=== PATIENT | male | born 1930 | race Caucasian/White ===

== ENCOUNTER 2019-01-21 16:48 | Emergency (ER) | payer MEDICARE ==
[2019-01-21] MEDS ORDERED: Sodium Chloride 0.9% 10 ML Syringe FLUSH PRN (17:39)
[2019-01-21] MEDS ORDERED: Dextrose 5%-Lactated Ringers 1,000 ML IV SCH (17:45)
--- NOTE | 2019-01-21 17:45 | EDM.PDOC ---
ED HPI GENERAL MEDICAL PROBLEM - General Chief Complaint: Fever Stated Complaint: FEVER AND IS A CHEMO PT Time Seen by Provider: 01/21/19 17:30 Source of Information: Reports: Patient, Family History Limitations: Reports: No Limitations - History of Present Illness INITIAL COMMENTS - FREE TEXT/NARRATIVE: Frandy comes into [facility] ED with a fever to 100.7 deg F. He was diagnosed with Stage III nonHodgkins lymphoma last month, and completed first cycle of chemotherapy at [facility] last week. Diarrheal sxs developed January 18, averaging about 4 loose stools per day, without BRB or mucous detected. Appetite has been poor today. There is no headache, cough, sore throat, swollen lymph nodes, nausea or vomiting, no voiding sxs. He took some Tylenol about 2 hours ago. - Related Data Allergies Allergy/AdvReac Type Severity Reaction Status Date / Time No Known Allergies Allergy Verified 11/18/18 08:59 Home Meds: Home Meds . [Unable to Verify Home Med List] 12/16/15 [History] Past Medical History HEENT History: Reports: Impaired Vision Cardiovascular History: Reports: High Cholesterol, Hypertension ED ROS GENERAL - Review of Systems Review Of Systems: See Below Constitutional: Reports: Fever, Malaise, Decreased Appetite HEENT: Reports: No Symptoms Respiratory: Reports: No Symptoms Cardiovascular: Reports: No Symptoms Endocrine: Reports: No Symptoms GI/Abdominal: Reports: Diarrhea, Decreased Appetite : Reports: No Symptoms Musculoskeletal: Reports: No Symptoms Skin: Reports: No Symptoms Neurological: Reports: No Symptoms Hematologic/Lymphatic: Reports: No Symptoms Immunologic: Reports: No Symptoms ED EXAM, GENERAL - Physical Exam Exam: See Below Exam Limited By: No Limitations General Appearance: Alert, WD/WN, No Apparent Distress Eye Exam: Bilateral Eye: EOMI, Normal Inspection, PERRL Ears: Normal External Exam, Normal TMs Nose: Normal Inspection Throat/Mouth: Normal Inspection, Normal Oropharynx, Normal Voice Head: Normocephalic Neck: Normal Inspection, Supple, Non-Tender Respiratory/Chest: No Respiratory Distress, No Accessory Muscle Use, Chest Non- Tender, Crackles (bases) Cardiovascular: Regular Rate, Rhythm, No Murmur GI/Abdominal: Normal Bowel Sounds, Soft, Non-Tender, No Organomegaly, No Distention, No Mass (Male) Exam: Deferred Rectal (Males) Exam: Deferred Back Exam: Normal Inspection Extremities: Normal Inspection Neurological: Alert, Oriented, CN II-XII Intact, No Motor/Sensory Deficits Psychiatric: Normal Affect, Normal Mood Skin Exam: Warm, Dry, Intact, Normal Color, No Rash Lymphatic: No Adenopathy Course - Vital Signs Text/Narrative:: Following assessment, screening labs and a chest x ray were obtained and baseline. An IV was inserted into the RUE and he received 1L of NS. He was afebrile at time of discharge. - Orders/Labs/Meds Orders: Active Orders 24 hr Category Date Time Status Chest 1V Frontal [CR] Stat Exams 01/21/19 17:39 Taken CULTURE BLOOD [BC] Stat Lab 01/21/19 17:50 Received Dextrose 5%-Lactated Ringers 1,000 ml Med 01/21/19 17:45 Active IV ASDIRECTED Dextrose 5%-Lactated Ringers [Dextrose 5%-LR] 500 ml Med 01/21/19 19:30 Active IV ASDIRECTED Sodium Chloride 0.9% [Saline Flush] Med 01/21/19 17:39 Active 10 ml FLUSH ASDIRECTED PRN Peripheral IV Insertion Adult [OM.PC] Routine Oth 01/21/19 17:39 Ordered Medication Orders Dextrose/Lactated Ringer's (Dextrose 5%-Lactated Ringers) 1,000 mls @ 500 mls/ hr IV ASDIRECTED VALERIE Last Admin: 01/21/19 17:47 Dose: 500 mls/hr Dextrose/Lactated Ringer's (Dextrose 5%-Lr) 500 mls @ 500 mls/hr IV ASDIRECTED VALERIE Sodium Chloride (Saline Flush) 10 ml FLUSH ASDIRECTED PRN PRN Reason: Keep Vein Open Last Admin: 01/21/19 17:42 Dose: 10 ml Labs: Laboratory Tests 01/21/19 01/21/19 01/21/19 Range/Units 17:50 17:50 17:50 WBC 6.0 (4.5-12.0) X10-3/uL RBC 3.03 L (4.30-5.75) x10(6)uL Hgb 9.8 L (13.5-17.8) g/dL Hct 28.6 L (30.0-51.3) % MCV 94.4 (80-96) fL MCH 32.3 (27.7-33.6) pg MCHC 34.2 (32.2-35.4) g/dL RDW 14.0 (11.5-15.5) % Plt Count 102 L (125-369) X10(3)uL MPV 10.0 (7.4-10.4) fL Add Manual Diff Yes Neutrophils % (Manual) 82 (46-82) % Band Neutrophils % 8 H (0-6) % Lymphocytes % (Manual) 8 L (13-37) % Monocytes % (Manual) 2 L (4-12) % Sodium 134 L (135-145) mmol/L Potassium 3.7 (3.5-5.3) mmol/L Chloride 100 (100-110) mmol/L Carbon Dioxide 28 (21-32) mmol/L BUN 27 H (7-18) mg/dL Creatinine 1.0 (0.70-1.30) mg/dL Est Cr Clr Drug Dosing TNP Estimated GFR (MDRD) > 60 (>60) BUN/Creatinine Ratio 27.0 H (9-20) Glucose 122 H (80-116) mg/dL Uric Acid 5.1 (2.6-6.0) mg/dL Calcium 7.5 L (8.6-10.2) mg/dL Total Bilirubin 0.6 (0.1-1.3) mg/dL AST 22 (5-25) IU/L ALT 28 (12-36) U/L Alkaline Phosphatase 76 (56-112) IU/L Total Protein 5.8 L (6.0-8.0) g/dL Albumin 2.7 L (3.2-4.6) g/dL Globulin 3.1 g/dL Albumin/Globulin Ratio 0.9 Urine Color (YELLOW) Urine Appearance (CLEAR) Urine pH (5.0-6.5) Ur Specific [place] (1.010-1.025) Urine Protein (NEGATIVE) mg/dL Urine Glucose (UA) (NORMAL) mg/dL Urine Ketones (NEGATIVE) mg/dL Urine Occult Blood (NEGATIVE) Urine Nitrite (NEGATIVE) Urine Bilirubin (NEGATIVE) Urine Urobilinogen (NEGATIVE) mg/dL Ur Leukocyte Esterase (NEGATIVE) Urine RBC (0-5) Urine WBC (0-5) Ur Squamous Epith Cells (NS,R,O) Urine Bacteria (NS) 01/21/19 Range/Units 19:57 WBC (4.5-12.0) X10-3/uL RBC (4.30-5.75) x10(6)uL Hgb (13.5-17.8) g/dL Hct (30.0-51.3) % MCV (80-96) fL MCH (27.7-33.6) pg MCHC (32.2-35.4) g/dL RDW (11.5-15.5) % Plt Count (125-369) X10(3)uL MPV (7.4-10.4) fL Add Manual Diff Neutrophils % (Manual) (46-82) % Band Neutrophils % (0-6) % Lymphocytes % (Manual) (13-37) % Monocytes % (Manual) (4-12) % Sodium (135-145) mmol/L Potassium (3.5-5.3) mmol/L Chloride (100-110) mmol/L Carbon Dioxide (21-32) mmol/L BUN (7-18) mg/dL Creatinine (0.70-1.30) mg/dL Est Cr Clr Drug Dosing Estimated GFR (MDRD) (>60) BUN/Creatinine Ratio (9-20) Glucose (80-116) mg/dL Uric Acid (2.6-6.0) mg/dL Calcium (8.6-10.2) mg/dL Total Bilirubin (0.1-1.3) mg/dL AST (5-25) IU/L ALT (12-36) U/L Alkaline Phosphatase (56-112) IU/L Total Protein (6.0-8.0) g/dL Albumin (3.2-4.6) g/dL Globulin g/dL Albumin/Globulin Ratio Urine Color Yellow (YELLOW) Urine Appearance Clear (CLEAR) Urine pH 5.0 (5.0-6.5) Ur Specific [place] 1.010 (1.010-1.025) Urine Protein Negative (NEGATIVE) mg/dL Urine Glucose (UA) Normal (NORMAL) mg/dL Urine Ketones Negative (NEGATIVE) mg/dL Urine Occult Blood Negative (NEGATIVE) Urine Nitrite Negative (NEGATIVE) Urine Bilirubin Negative (NEGATIVE) Urine Urobilinogen Normal (NEGATIVE) mg/dL Ur Leukocyte Esterase Negative (NEGATIVE) Urine RBC Not seen (0-5) Urine WBC 0-5 (0-5) Ur Squamous Epith Cells Few H (NS,R,O) Urine Bacteria Few H (NS) Meds: Medications Generic Name Dose Route Start Last Admin Trade Name Cindy PRN Reason Stop Dose Admin Dextrose/Lactated Ringer's 1,000 mls @ 500 mls/hr 01/21/19 17:45 01/21/19 17: 47 Dextrose 5%-Lactated Ringers IV 500 mls/hr ASDIRECTED VALERIE Administration Dextrose/Lactated Ringer's 500 mls @ 500 mls/hr 01/21/19 19:30 Dextrose 5%-Lr IV ASDIRECTED VALERIE Sodium Chloride 10 ml 01/21/19 17:39 01/21/19 17:42 Saline Flush FLUSH 10 ml ASDIRECTED PRN Administration Keep Vein Open Departure - Departure Time of Disposition: 20:15 Disposition: Home, Self-Care 01 Condition: Good Clinical Impression: Fever, unspecified Non-Hodgkins lymphoma Qualifiers: Non-Hodgkin lymphoma type: unspecified type Lymphoma site: neck Qualified Code( s): C85.91 - Non-Hodgkin lymphoma, unspecified, lymph nodes of head, face, and neck - Discharge Information *PRESCRIPTION DRUG MONITORING PROGRAM REVIEWED*: Not Applicable *COPY OF PRESCRIPTION DRUG MONITORING REPORT IN PATIENT [place]: Not Applicable Referrals: PCP,Not In Area [Ordering Only Provider] - Forms: ED Department Discharge - Problem List & Annotations (1) Fever, unspecified SNOMED Code(s): 720083935 Code(s): R50.9 - FEVER, UNSPECIFIED Status: Acute Current Visit: Yes Annotation/Comment:: Monitor temps at home, hydration, rest. (2) Non-Hodgkins lymphoma SNOMED Code(s): 480197985 Code(s): C85.90 - NON-HODGKIN LYMPHOMA, UNSPECIFIED, UNSPECIFIED SITE Status: Acute Current Visit: Yes Annotation/Comment:: Contact Oncology Nurse in am for update. Qualifiers: Non-Hodgkin lymphoma type: unspecified type Lymphoma site: neck Qualified Code(s): C85.91 - Non-Hodgkin lymphoma, unspecified, lymph nodes of head, face, and neck - Problem List Review Problem List Initiated/Reviewed/Updated: Yes - My Orders Last 24 Hours: My Active Orders 01/21/19 17:39 Chest 1V Frontal [CR] Stat Sodium Chloride 0.9% [Saline Flush] 10 ml FLUSH ASDIRECTED PRN Peripheral IV Insertion Adult [OM.PC] Routine 01/21/19 17:45 Dextrose 5%-Lactated Ringers 1,000 ml IV ASDIRECTED 01/21/19 17:50 CULTURE BLOOD [BC] Stat 01/21/19 19:30 Dextrose 5%-Lactated Ringers [Dextrose 5%-LR] 500 ml IV ASDIRECTED - Assessment/Plan Last 24 Hours: My Active Orders 01/21/19 17:39 Chest 1V Frontal [CR] Stat Sodium Chloride 0.9% [Saline Flush] 10 ml FLUSH ASDIRECTED PRN Peripheral IV Insertion Adult [OM.PC] Routine 01/21/19 17:45 Dextrose 5%-Lactated Ringers 1,000 ml IV ASDIRECTED 01/21/19 17:50 CULTURE BLOOD [BC] Stat 01/21/19 19:30 Dextrose 5%-Lactated Ringers [Dextrose 5%-LR] 500 ml IV ASDIRECTED Plan: Follow up with Oncology.
--- NOTE | 2019-01-22 10:21 | CR ---
INDICATION: Fever post-chemotherapy--first round of chemo was last week for lymphoma. CHEST ONE VIEW: Portable AP upright view of the chest was obtained 01/21/19 and compared with 08/10/08. There appears to be some very minimal infiltrate in the mid lung field laterally on the right with minimal pleural thickening. This could represent a minimal area of pneumonia and pleuritis. It could also represent interval fibrosis compared with 2008. Heavy markings are also noted at the lung bases especially on the left present previously and likely fibrotic in nature, but making it difficult to exclude minimal patchy bronchopneumonia. However, no consolidating pneumonia with definite effusion was seen. The heart appeared prominent in size or slightly enlarged. Post median sternotomy change is noted. The aorta is moderately tortuous with calcification in the arch area. IMPRESSION: 1. No definite acute process, but cannot exclude minimal patchy pneumonia in the right upper lobe with pleuritis in that area to a minimal extent as well as at the lung bases especially on the left due to heavy markings likely due to fibrosis. 2. ASHD with post CBAG surgery changes. MTDD
[2019-01-22 18:42] VITALS: BP 128/69; PULSE 88
== END 2019-01-21 20:20 | disposition home or self-care (01) ==
LOC: FB.ED 16:48
DX: C85.91 Non-Hodgkin lymphoma, unspecified, lymph nodes of head, face, and neck (principal); I10 Essential (primary) hypertension
CPT/HCPCS: 36415; 71045; 80053; 81001; 84550; 85025; 87040; 96360; 96361; 99284; J7042

== ENCOUNTER 2019-01-23 07:30 | Emergency (ER) | payer MEDICARE ==
--- NOTE | 2019-01-23 07:57 | EDM.PDOC ---
ED HPI GENERAL MEDICAL PROBLEM - General Chief Complaint: Fever Stated Complaint: FEVER Time Seen by Provider: 01/23/19 07:30 Source of Information: Reports: Patient, Family History Limitations: Reports: No Limitations - History of Present Illness INITIAL COMMENTS - FREE TEXT/NARRATIVE: 88 y.a.w.m with none Hodgkin Lymphoma Typ, S/P Chemo Tx, came to the ED due to weakness and fever of 102 at home. Pt denied pain, no chills, no cough, no dysuria, no trauma. No other acute med issues. BP 104/60 RR 18 Pulse ox 95% on RA, Pulse 100 Temp 37.3 Onset Date: 01/23/19 Onset Time: 06:00 Duration: Minutes: Location: Reports: Generalized Quality: Reports: Other (feels weak) Severity: Mild Improves with: Reports: Rest Worsens with: Reports: Movement Context: Reports: Other (H/O Lymphoma) Associated Symptoms: Reports: Weakness - Related Data Allergies Allergy/AdvReac Type Severity Reaction Status Date / Time No Known Allergies Allergy Verified 11/18/18 08:59 Home Meds: Home Meds . [Unable to Verify Home Med List] 12/16/15 [History] Past Medical History HEENT History: Reports: Impaired Vision Cardiovascular History: Reports: High Cholesterol, Hypertension Oncologic (Cancer) History: Reports: Lymphoma Social & Family History - Family History Family Medical History: Noncontributory - Tobacco Use Smoking Status *Q: Former Smoker Used Tobacco, but Quit: Yes Month/Year Tobacco Last Used: 1998 Second Hand Smoke Exposure: No - Caffeine Use Caffeine Use: Reports: Coffee - Recreational Drug Use Recreational Drug Use: No ED ROS GENERAL - Review of Systems Review Of Systems: See Below Constitutional: Reports: No Symptoms, Weakness HEENT: Reports: No Symptoms Respiratory: Reports: No Symptoms Cardiovascular: Reports: No Symptoms Endocrine: Reports: No Symptoms GI/Abdominal: Reports: No Symptoms : Reports: No Symptoms Musculoskeletal: Reports: No Symptoms Skin: Reports: No Symptoms Neurological: Reports: Weakness Psychiatric: Reports: No Symptoms Hematologic/Lymphatic: Reports: No Symptoms Immunologic: Reports: No Symptoms ED EXAM, SEPSIS - Physical Exam Exam: See Below Exam Limited By: No Limitations General Appearance: Alert, WD/WN, Mild Distress Eye Exam: Bilateral Eye: Normal Inspection Ears: Normal External Exam, Normal Canal Nose: Normal Inspection, Normal Mucosa Throat/Mouth: Normal Inspection, Normal Lips, Normal Voice, No Airway Compromise Head: Atraumatic, Normocephalic Neck: Normal Inspection, Supple, Non-Tender, Full Range of Motion Respiratory/Chest: No Respiratory Distress, Lungs Clear, Normal Breath Sounds, No Accessory Muscle Use, Chest Non-Tender Cardiovascular: Normal Peripheral Pulses, Regular Rate, Rhythm Peripheral Pulses: 1+: Brachial (L) GI/Abdominal Exam: Normal Bowel Sounds, Soft, Non-Tender, No Organomegaly, No Mass, Pelvis Stable (Male) Exam: Deferred Rectal (Males) Exam: Deferred Back: Normal Inspection, Full Range of Motion Extremities: Normal Inspection, Normal Range of Motion, Non-Tender, No Pedal Edema, Normal Capillary Refill Neurological: Alert, Oriented, CN II-XII Intact, Normal Cognition, Normal Gait Psychiatric: Normal Affect, Normal Mood Skin: Warm, Dry, Intact, Normal Color, No Rash Lymphatic: Left: Cervical Adenopathy (has lymphoma) Course - Vital Signs Text/Narrative:: 88 y.a.w.m with none Hodgkin Lymphoma Typ, S/P Chemo Tx, came to the ED due to weakness and fever of 102 at home. Pt denied pain, no chills, no cough, no dysuria, no trauma. No other acute med issues. BP 104/60 RR 18 Pulse ox 95% on RA, Pulse 100 Temp 37.3 PE: Pale weak appearing 88 y.o.w.m Imaging: CXR: pending Labs: WBC 1.2 HGB 9.1 HCT 26.6 PlS 67K Na 134 K 3.7 BUN 23 Cr 1.3 GFR 52 Ca 7.2 Impression: Non Hodgkin Disease Typ B, Neutropenia. Low Pls, Low Ca Tx: NS Zosyn 8.30 am Consultation: Dr. Mathews, Hospitalist: transfer 8.42 am Consultation: , Oncologist, [facility]: Accepted the pt for transfer and admission Reexam: Improved Plan: Transfere to [place] Last Recorded V/S: Last Vital Signs Temp 37.4 C 01/23/19 09:18 Pulse 97 01/23/19 09:18 Resp 15 01/23/19 09:18 BP 98/50 L 01/23/19 09:18 Pulse Ox 95 01/23/19 09:18 - Orders/Labs/Meds Orders: Active Orders 24 hr Category Date Time Status CXR [Chest 1V Frontal] [CR] Stat Exams 01/23/19 07:55 Taken CULTURE BLOOD [BC] Urgent Lab 01/23/19 08:06 Received CULTURE BLOOD [BC] Urgent Lab 01/23/19 08:11 Received Sodium Chloride 0.9% [Normal Saline] 1,000 ml Med 01/23/19 08:26 Active IV ASDIRECTED Blood Culture x2 Reflex Set [OM.PC] Urgent Oth 01/23/19 07:55 Ordered Medication Orders Sodium Chloride (Normal Saline) 1,000 mls @ 125 mls/hr IV ASDIRECTED STA Stop: 01/23/19 16:25 Last Admin: 01/23/19 08:50 Dose: 125 mls/hr Labs: Laboratory Tests 01/23/19 01/23/19 01/23/19 Range/Units 08:06 08:06 08:06 WBC 1.2 L* (4.5-12.0) X10-3/uL RBC 2.83 L (4.30-5.75) x10(6)uL Hgb 9.1 L (13.5-17.8) g/dL Hct 26.6 L (30.0-51.3) % MCV 93.9 (80-96) fL MCH 32.1 (27.7-33.6) pg MCHC 34.2 (32.2-35.4) g/dL RDW 14.0 (11.5-15.5) % Plt Count 67 L (125-369) X10(3)uL MPV 10.2 (7.4-10.4) fL Add Manual Diff Yes Neutrophils % (Manual) 60 (46-82) % Lymphocytes % (Manual) 20 (13-37) % Monocytes % (Manual) 20 H (4-12) % PT 9.8 (8.7-11.1) INR 1.01 (0.89-1.13) Sodium 134 L (135-145) mmol/L Potassium 3.7 (3.5-5.3) mmol/L Chloride 98 L (100-110) mmol/L Carbon Dioxide 25 (21-32) mmol/L BUN 23 H (7-18) mg/dL Creatinine 1.3 (0.70-1.30) mg/dL Est Cr Clr Drug Dosing 36.72 mL/min Estimated GFR (MDRD) 52 L (>60) BUN/Creatinine Ratio 17.7 (9-20) Glucose 115 (80-116) mg/dL Lactic Acid (0.4-2.2) mmol/L Calcium 7.2 L (8.6-10.2) mg/dL Urine Color (YELLOW) Urine Appearance (CLEAR) Urine pH (5.0-6.5) Ur Specific [place] (1.010-1.025) Urine Protein (NEGATIVE) mg/dL Urine Glucose (UA) (NORMAL) mg/dL Urine Ketones (NEGATIVE) mg/dL Urine Occult Blood (NEGATIVE) Urine Nitrite (NEGATIVE) Urine Bilirubin (NEGATIVE) Urine Urobilinogen (NEGATIVE) mg/dL Ur Leukocyte Esterase (NEGATIVE) Urine RBC (0-5) Urine WBC (0-5) Ur Squamous Epith Cells (NS,R,O) Urine Bacteria (NS) 01/23/19 01/23/19 Range/Units 08:06 08:30 WBC (4.5-12.0) X10-3/uL RBC (4.30-5.75) x10(6)uL Hgb (13.5-17.8) g/dL Hct (30.0-51.3) % MCV (80-96) fL MCH (27.7-33.6) pg MCHC (32.2-35.4) g/dL RDW (11.5-15.5) % Plt Count (125-369) X10(3)uL MPV (7.4-10.4) fL Add Manual Diff Neutrophils % (Manual) (46-82) % Lymphocytes % (Manual) (13-37) % Monocytes % (Manual) (4-12) % PT (8.7-11.1) INR (0.89-1.13) Sodium (135-145) mmol/L Potassium (3.5-5.3) mmol/L Chloride (100-110) mmol/L Carbon Dioxide (21-32) mmol/L BUN (7-18) mg/dL Creatinine (0.70-1.30) mg/dL Est Cr Clr Drug Dosing mL/min Estimated GFR (MDRD) (>60) BUN/Creatinine Ratio (9-20) Glucose (80-116) mg/dL Lactic Acid 1.3 (0.4-2.2) mmol/L Calcium (8.6-10.2) mg/dL Urine Color Yellow (YELLOW) Urine Appearance Slightly cloudy (CLEAR) Urine pH 5.0 (5.0-6.5) Ur Specific [place] 1.010 (1.010-1.025) Urine Protein 30 H (NEGATIVE) mg/dL Urine Glucose (UA) Normal (NORMAL) mg/dL Urine Ketones 50 H (NEGATIVE) mg/dL Urine Occult Blood Moderate H (NEGATIVE) Urine Nitrite Negative (NEGATIVE) Urine Bilirubin Small H (NEGATIVE) Urine Urobilinogen 1 H (NEGATIVE) mg/dL Ur Leukocyte Esterase Negative (NEGATIVE) Urine RBC 0-5 (0-5) Urine WBC 0-5 (0-5) Ur Squamous Epith Cells Occasional (NS,R,O) Urine Bacteria Occasional H (NS) Meds: Medications Generic Name Dose Route Start Last Admin Trade Name Freq PRN Reason Stop Dose Admin Sodium Chloride 1,000 mls @ 125 mls/hr 01/23/19 08:26 01/23/19 08:50 Normal Saline IV 01/23/19 16:25 125 mls/hr ASDIRECTED STA Administration Discontinued Medications Generic Name Dose Route Start Last Admin Trade Name Freq PRN Reason Stop Dose Admin Piperacillin Sod/Tazobactam 50 mls @ 100 mls/hr 01/23/19 08:28 01/23/19 08:59 Sod 3.375 gm/ Sodium Chloride IV 01/23/19 08:57 100 mls/hr ONETIME STA Administration Departure - Departure Time of Disposition: 09:20 Disposition: DC/Tfer to Acute Hospital 02 Condition: Fair Clinical Impression: Neutropenia - Discharge Information Referrals: Marques Denis MD [Primary Care Provider] - Forms: ED Department Discharge - My Orders Last 24 Hours: My Active Orders 01/23/19 07:55 CXR [Chest 1V Frontal] [CR] Stat Blood Culture x2 Reflex Set [OM.PC] Urgent 01/23/19 08:06 CULTURE BLOOD [BC] Urgent 01/23/19 08:11 CULTURE BLOOD [BC] Urgent 01/23/19 08:26 Sodium Chloride 0.9% [Normal Saline] 1,000 ml IV ASDIRECTED - Assessment/Plan Last 24 Hours: My Active Orders 01/23/19 07:55 CXR [Chest 1V Frontal] [CR] Stat Blood Culture x2 Reflex Set [OM.PC] Urgent 01/23/19 08:06 CULTURE BLOOD [BC] Urgent 01/23/19 08:11 CULTURE BLOOD [BC] Urgent 01/23/19 08:26 Sodium Chloride 0.9% [Normal Saline] 1,000 ml IV ASDIRECTED
[2019-01-23] MEDS ORDERED: Sodium Chloride 0.9% 1,000 ML IV STA (08:26)
[2019-01-23] MEDS ORDERED: Piperacillin/Tazobactam 3.375 GM in Sodium Chloride 0.9% 50 ML IV STA (08:28)
[2019-01-23 09:20] VITALS: BP 98/50; PULSE 97
== END 2019-01-23 09:45 ==
LOC: FB.ED 07:30
DX: D70.9 Neutropenia, unspecified (principal); C85.90 Non-Hodgkin lymphoma, unspecified, unspecified site; E83.51 Hypocalcemia; Z87.891 Personal history of nicotine dependence
CPT/HCPCS: 36415; 71045; 80048; 81001; 83605; 85025; 85610; 87040; 96365; 99284; J2543; J7030; J7050